=== PATIENT | female | born 1965 | race Caucasian/White ===

== ENCOUNTER 2018-04-04 18:09 | Emergency (ER) | payer MEDICARE, MEDICAID ==
[2018-04-04 18:38] VITALS: BP 139/96
--- NOTE | 2018-04-04 19:36 | EDM.PDOCBH ---
ED HPI GENERAL MEDICAL PROBLEM - General Chief Complaint: Behavioral/Psych Stated Complaint: EVAL Time Seen by Provider: 04/04/18 19:33 Source of Information: Reports: Patient History Limitations: Reports: No Limitations - History of Present Illness INITIAL COMMENTS - FREE TEXT/NARRATIVE: pt arrived as she was found at [facility] manic and very emotional. Her washing machine was not working and she tore it completely apart. There parts of the machine in multiple rooms. She was found to be hyperthyroid 1 week ago and she did stop her thyroid. She also stopped her wellbruiten and her ambilify. She was noting a rapid heart rate. Onset: Gradual, Other ( Last 2-3 days. ) Duration: Hour(s): Location: Reports: Generalized Associated Symptoms: Reports: No Other Symptoms Generalized Pain Score (Numeric/FACES): 7 - Related Data Allergies Allergy/AdvReac Type Severity Reaction Status Date / Time erythromycin base Allergy Indigestion Verified 04/04/18 18:38 [Erythromycin Base] shellfish derived Allergy Hives Verified 04/04/18 18:38 Tetracyclines Allergy Rash Verified 04/04/18 18:38 Home Meds: Home Meds Levothyroxine Sodium [Levothroid] 50 mcg PO DAILY 11/07/12 [History] buPROPion HCl [Wellbutrin SR] 150 mg PO DAILY 11/07/12 [History] Aspirin [Halfprin] 81 mg PO DAILY 11/15/12 [History] Vortioxetine Hydrobromide [Brintellix] 20 mg PO BEDTIME 05/02/14 [History] tiZANidine [Zanaflex] 1 tab PO ASDIRECTED PRN 05/02/14 [History] Ascorbate Calcium [Vitamin C] 500 mg PO DAILY 04/29/15 [History] Cholecalciferol (Vitamin D3) [Vitamin D-3] 1 tab PO DAILY 04/29/15 [History] ClonazePAM [KlonoPIN] 0.5 mg PO BIDMEALS PRN 04/29/15 [History] Fish Oil/[place]-3 Fatty Acids [Fish Oil 1,000 MG] 1 cap PO DAILY 04/29/15 [ History] Ibuprofen [Advil] 800 mg PO TID PRN 04/29/15 [History] Vitamin E Mixed [Vitamin E] 400 unit PO DAILY 04/29/15 [History] Rivaroxaban [Xarelto] 20 mg PO DAILY 04/04/18 [History] Past Medical History HEENT History: Reports: Impaired Vision Cardiovascular History: Reports: Afib, Hypertension, [place] Other Cardiovascular History: OH 2011 Respiratory History: Reports: SOB Gastrointestinal History: Reports: Chronic Constipation 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 Psychiatric History: Reports: Anxiety, Depression, PTSD Endocrine/Metabolic History: Reports: Hyperthyroidism, Hypothyroidism Hematologic History: Reports: Anticoagulation Therapy Immunologic History: Reports: Other (See Below) - Infectious Disease History Infectious Disease History: Reports: Chicken Pox, Measles - Past Surgical History Head Surgeries/Procedures: Reports: None Other Cardiovascular Surgeries/Procedures: angiogram 2011, no stent placement. GI Surgical History: Reports: Hernia, Inguinal Female Surgical History: Reports: Tubal Ligation Endocrine Surgical History: Reports: Parathyroidectomy Neurological Surgical History: Reports: Discectomy, Spinal Fusion Musculoskeletal Surgical History: Reports: Other (See Below) Social & Family History - Family History Cardiac: Reports: Hypertension GI: Reports: Bowel Obstruction, Chronic Constipation : Reports: Renal Calculus Musculoskeletal: Reports: Arthritis, Osteoporosis Psychiatric: Reports: Anxiety, Depression Oncologic: Reports: Colon - Tobacco Use Smoking Status *Q: Never Smoker Second Hand Smoke Exposure: No - Caffeine Use Caffeine Use: Reports: Coffee - Recreational Drug Use Recreational Drug Use: No ED ROS GENERAL - Review of Systems Review Of Systems: See Below Constitutional: Reports: No Symptoms HEENT: Reports: No Symptoms Respiratory: Reports: No Symptoms Cardiovascular: Reports: Palpitations, Other (pt has been noting that her heart rate is rapid. ) Endocrine: Reports: No Symptoms GI/Abdominal: Reports: No Symptoms : Reports: No Symptoms Musculoskeletal: Reports: No Symptoms Skin: Reports: No Symptoms ED EXAM, BEHAVIORAL HEALTH - Physical Exam Exam: See Below Text/Narrative:: pt was found upset and somewhat manic this afternoon. She had 1 week ago stopped her wellbruitin 150 which she took in the am and she stopped her abilify 2.5 mg. She was found to be hyperthyroid and she stopped her thyroid. She had noted palpitations which was probably related to the hyperactive thyroid. Her ca is on the higher side for her. Exam Limited By: No Limitations General Appearance: Alert, Anxious, Other (pt was somewhat manic at the time. ) Ears: Normal TMs Nose: Normal Inspection Throat/Mouth: Normal Inspection Head: Atraumatic Neck: Normal Inspection Respiratory/Chest: No Respiratory Distress Cardiovascular: Regular Rate, Rhythm, Other ( rate is 90. ) GI/Abdominal: Soft, Non-Tender Rectal (Female) Exam: Deferred Back Exam: Normal Inspection Extremities: Normal Inspection Neurological: Alert, Normal Cognition, Oriented x 3, Other (pt did feel confused earlier today. ) Psychiatric: Alert, Normal Cognition COURSE, BEHAVIORAL HEALTH COMP - Course Vital Signs: Last Vital Signs Temp 35.7 C 04/04/18 18:45 Pulse 107 H 04/04/18 18:45 Resp 16 04/04/18 18:45 BP 139/96 H 04/04/18 18:45 Pulse Ox 95 04/04/18 18:45 Orders, Labs, Meds: Active Orders 24 hr Category Date Time Status EKG Documentation Completion [RC] ASDIRECTED Care 04/04/18 19:36 Active EKG 12 Lead [EK] Routine Ther 04/04/18 19:36 Ordered Laboratory Tests 04/04/18 04/04/18 04/04/18 Range/Units 19:31 19:32 19:54 Sodium 145 (140-148) mmol/L Potassium 4.0 (3.6-5.2) mmol/L Chloride 104 (100-108) mmol/L Carbon Dioxide 31 (21-32) mmol/L Anion Gap 9.7 (5.0-14.0) mmol/L BUN 6 L (7-18) mg/dL Creatinine 0.8 (0.6-1.0) mg/dL Est Cr Clr Drug Dosing 79.99 mL/min Estimated GFR (MDRD) > 60 (>60) Glucose 104 (74-106) mg/dL Calcium 10.7 H (8.5-10.1) mg/dL Free T4 0.81 (0.76-1.46) ng/dL Free T3 2.70 (2.18-3.98) pg/dL TSH, Ultra Sensitive 0.764 (0.358-3.740) uIU/mL Urine Color Yellow Urine Appearance Cloudy Urine pH 7.0 (4.5-8.0) Ur Specific [place] 1.010 (1.008-1.030) Urine Protein Negative (NEGATIVE) mg/dL Urine Glucose (UA) Normal (NEGATIVE) mg/dL Urine Ketones Negative (NEGATIVE) mg/dL Urine Occult Blood Negative (NEGATIVE) Urine Nitrite Negative (NEGATIVE) Urine Bilirubin Negative (NEGATIVE) Urine Urobilinogen Normal (NORMAL) mg/dL Ur Leukocyte Esterase Moderate (NEGATIVE) Urine RBC 0-5 (0-5) Urine WBC 5-10 H (0-5) Ur Epithelial Cells Few Amorphous Sediment Rare Urine Bacteria Rare Urine Mucus Rare Urine Opiates Screen (NEGATIVE) Ur Oxycodone Screen (NEGATIVE) Urine Methadone Screen (NEGATIVE) Ur Propoxyphene Screen (NEGATIVE) Ur Barbiturates Screen (NEGATIVE) Ur Tricyclics Screen (NEGATIVE) Ur Phencyclidine Scrn (NEGATIVE) Ur Amphetamine Screen (NEGATIVE) U Methamphetamines Scrn (NEGATIVE) Urine MDMA Screen (NEGATIVE) U Benzodiazepines Scrn (NEGATIVE) U Cocaine Metab Screen (NEGATIVE) U Marijuana (THC) Screen (NEGATIVE) 04/04/18 Range/Units 19:54 Sodium (140-148) mmol/L Potassium (3.6-5.2) mmol/L Chloride (100-108) mmol/L Carbon Dioxide (21-32) mmol/L Anion Gap (5.0-14.0) mmol/L BUN (7-18) mg/dL Creatinine (0.6-1.0) mg/dL Est Cr Clr Drug Dosing mL/min Estimated GFR (MDRD) (>60) Glucose (74-106) mg/dL Calcium (8.5-10.1) mg/dL Free T4 (0.76-1.46) ng/dL Free T3 (2.18-3.98) pg/dL TSH, Ultra Sensitive (0.358-3.740) uIU/mL Urine Color Urine Appearance Urine pH (4.5-8.0) Ur Specific [place] (1.008-1.030) Urine Protein (NEGATIVE) mg/dL Urine Glucose (UA) (NEGATIVE) mg/dL Urine Ketones (NEGATIVE) mg/dL Urine Occult Blood (NEGATIVE) Urine Nitrite (NEGATIVE) Urine Bilirubin (NEGATIVE) Urine Urobilinogen (NORMAL) mg/dL Ur Leukocyte Esterase (NEGATIVE) Urine RBC (0-5) Urine WBC (0-5) Ur Epithelial Cells Amorphous Sediment Urine Bacteria Urine Mucus Urine Opiates Screen Negative (NEGATIVE) Ur Oxycodone Screen Negative (NEGATIVE) Urine Methadone Screen Negative (NEGATIVE) Ur Propoxyphene Screen Negative (NEGATIVE) Ur Barbiturates Screen Negative (NEGATIVE) Ur Tricyclics Screen Negative (NEGATIVE) Ur Phencyclidine Scrn Negative (NEGATIVE) Ur Amphetamine Screen Negative (NEGATIVE) U Methamphetamines Scrn Negative (NEGATIVE) Urine MDMA Screen Negative (NEGATIVE) U Benzodiazepines Scrn Negative (NEGATIVE) U Cocaine Metab Screen Negative (NEGATIVE) U Marijuana (THC) Screen Negative (NEGATIVE) Medical Clearance: 04/04/18 20:51 pt has a mild elevation in her calcium and she statwes she becomes symptomatic at that level. Her thyroid funtion is normal. Her other electrolytes look good. 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 decrease ca to 1 tab qod. - My Orders Last 24 Hours: My Active Orders 04/04/18 19:36 EKG Documentation Completion [RC] ASDIRECTED EKG 12 Lead [EK] Routine - Assessment/Plan Last 24 Hours: My Active Orders 04/04/18 19:36 EKG Documentation Completion [RC] ASDIRECTED EKG 12 Lead [EK] Routine
== END 2018-04-04 20:51 | disposition home or self-care (01) ==
LOC: JP.ED 18:09
DX: E05.90 Thyrotoxicosis, unspecified without thyrotoxic crisis or storm (principal); F30.9 Manic episode, unspecified; I48.91 Unspecified atrial fibrillation; I10 Essential (primary) hypertension; I25.2 Old myocardial infarction; Z79.899 Other long term (current) drug therapy; Z98.890 Other specified postprocedural states
CPT/HCPCS: 36415; 80048; 80305-QW; 81001; 84439; 84443; 84481; 93005; 99285-25